=== PATIENT | female | born 1980 | race Caucasian/White ===

== ENCOUNTER 2018-06-15 10:05 | Emergency (ER) | payer OTHER ==
[~2018-06-15] VITALS: Ht 167.6 cm; Wt 56.8 kg
[2018-06-15] MEDS ORDERED: ACETAMINOPHEN 500 MG TAB PO ONE (10:30)
--- NOTE | 2018-06-15 11:01 | REP ---
RIGHT FOOT, FOUR VIEWS: HISTORY: Fourth toe pain. There is no acute fracture or dislocation. The joint spaces are normal in appearance. IMPRESSION: There is no acute fracture or dislocation. Electronically Signed by Rafael Escamilla MD 06/15/2018 11:21 A
[2018-06-15] MEDS ORDERED: IBUP-1022 PO (11:13)
[2018-06-15 11:18] VITALS: BP 110/56
== END 2018-06-15 11:20 | disposition home or self-care (01) ==
LOC: M ED 10:05
DX: S90.31XA Contusion of right foot, initial encounter (principal); W01.0XXA Fall on same level from slipping, tripping and stumbling without subsequent striking against object, initial encounter; Y92.012 Bathroom of single-family (private) house as the place of occurrence of the external cause